=== PATIENT | male | born 1970 | race Two or more races ===

== ENCOUNTER 2021-07-07 20:41 | Emergency (ER) | payer MEDICAID, OTHER ==
[~2021-07-07] VITALS: Ht 182.9 cm; Wt 106.6 kg
[2021-07-07 23:00] VITALS: BP 152/99
== END 2021-07-07 23:06 | disposition home or self-care (01) ==
LOC: ER 20:43
DX: M79.662 Pain in left lower leg (principal)
CPT/HCPCS: 93971